=== PATIENT | male | born 1995 | race Two or more races ===

== ENCOUNTER 2025-09-20 14:14 | Outpatient (AMB) | payer MEDICAID, SELFPAY ==
[2025-09-20 14:38] VITALS: BP 135/85; PULSE 87; RESP 18; TEMP 36.7; O2SAT 96; BMI 34.0
--- NOTE | 2025-09-20 14:38 | PD.GSCLVISIT ---
Vital Signs - [facility] 09/20/25 14:38 Height 1.78 m Height Method Measured Weight 107.615 kg Weight Measurement Method Standing Scale BMI 34.0 BP 135/85 H Blood Pressure Source Automatic Cuff Blood Pressure Location Left Upper Arm Position Sitting Respiration 18 Pulse 87 Pulse Source Monitor Temp 98.0 F Temp Source Temporal Artery Scan Pulse Oximetry (%) 96 Oxygen Delivery Method Room Air Med/Allergies Allergies & Medications Allergies No Known Allergies Allergy (Verified 09/20/25 14:41) Medication Reconciliation acetaminophen 500 mg capsule 1,000 mg (2 x 500 mg) PO Q8HR PRN pain #60 caps 06/15/21 [Rx Confirmed 09/20/25] ibuprofen 800 mg tablet 800 mg PO TID PRN pain #30 tabs 06/15/21 [Rx Confirmed 09/20/25] MA Intake Visit Data Collection New Patient or Established: New Patient (never been to [facility]) Seen by Clinical Staff ONLY (RN/MA): No Reason for Visit:: REFERRAL LUMP Pain Present Currently: No Pain Scale Used: Guevara-Casarez/Numerical Computerized Table Cutter Required: No PCP or OBGYN visit in last 3 months: Yes Hx Now: No Do You Feel Safe at Home: Yes Authorities Contacted: N/A Smoking Status Smoking Status: Never smoker Immunization / Flu Flu Vaccine in the Last 12 Months: No Flu Vaccine Exclusion Criteria: Refused by Patient Past Medical History Past Medical History CARDIAC: Negative Congestive Heart Failure RESPIRATORY: Negative Chronic Obstructive Pulmonary Disease (COPD) GENITOURINARY: Negative Renal Disease ENDOCRINE: Negative Diabetes Mellitus Type 1 or Diabetes Mellitus Type 2 Social History SMOKING STATUS: Smoking status: Never smoker HPI HPI Narrative 29M referred for perianal drainage. Patient reports he has noticed it for the past 2 to 3 months, tends to be yellowish and at first had a foul smell but this improved with oral antibiotics. He continues to have drainage on most days and sometimes has blood upon wiping. He states his bowel movements are soft and regular, not requiring any straining and not usually loose. He is not using any remedies, and has not tried sitz baths but does take warm showers. He denies any history of similar symptoms PMH: DM 2, last A1c in December was 8.8 PSH: None Meds: None, patient was previously on an oral medication for diabetes (possibly metformin) but he discontinued it due to GI symptoms Allergies: NKDA Social history: Non-smoker Family history: Father had a perianal fistula but no known IBD or colorectal cancer ROS Review of Systems Systems Reviewed: All systems reviewed, normal except as documented Objective/Exam General General Appearance: alert, cooperative and well groomed Resp Respiratory exam: Absent respiratory distress Rectal Rectal exam: Present other (At the right posterior perianal region there is an external opening approximately 1 cm from the anal verge, it is tender, no bleeding or drainage, no erythema) Assessment & Plan Diagnosis / Problem List (1) Perianal fistula: Status: Acute Assessment & Plan: 29M with DM 2 not on any medications presenting with signs and symptoms of a perianal fistula. I explained that surgical pair will take place in 2 steps, first with seton placement followed by definitive surgery. I emphasized that getting his glucose under better control is important for wound healing and for minimizing risk of infection and recurrence. I encouraged patient to follow-up with his primary care provider to discuss a different medication for managing his glucose. All questions agreeable to proceeding Plan: Will schedule for EUA with seton placement as soon as possible Office Procedures GNS Level of Care Nursing/Assessment Patient Status: Initial/New Patient Nursing Assessment/Reassesment: Medication Reconciliation, Update PMH in EMR and Vital Signs Coordination of Care: Complex Care and Chronic Disease 1-5, Education Complex Pt/Fam, Consent,records obtained, informed consent, Results/Orders obtained and Staff clarify orders New Patient Charge New Patient Point Assignment: [id number] New Patient Point Charge: MOBILE ARCHITECT Level 3 ([id number]) Patient Portal Questionaires Social History Tobacco History Smoking Status: Never smoker Domestic Abuse History Do You Feel Safe at Home: Yes Review of Systems Report any current symptoms Only answer those that you have currently: Past Medical History Past Medical History Have you ever been diagnosed with any of the following: Cardiology Problems Congestive Heart Failure: No Respiratory Problems Chronic Obstructive Pulmonary Disease (COPD): No Genital/Urinary Problems Renal Disease: No Endocrine Problems Diabetes Mellitus Type 1: No Diabetes Mellitus Type 2: No
== END 2025-09-20 15:08 | disposition home or self-care (01) ==
PROVIDERS: PCP Internal Medicine; Referring Provider Internal Medicine; Supervising Provider Surgery; Visit Provider Surgery
DX: K60.30 Anal fistula, unspecified (principal); E11.9 Type 2 diabetes mellitus without complications
CPT/HCPCS: 99203; G0463